=== PATIENT | male | born 1950 | race Two or more races ===

== ENCOUNTER 2022-08-19 07:09 | Outpatient (CLI) | payer OTHER ==
[~2022-08-19 07:09] MED LIST: CIPRO500 MG PO; COUMADIN7.5 MG; ENALAPRIL MALEA10 MG; INTESTINEX1 CA1 PO; TAMS0.4C PO
== END 2022-08-19 07:11 | disposition home or self-care (01) ==
LOC: RX STUDY 07:09
PROVIDERS: ATTEND Internal Medicine Gastroenterology
DX: K30 Functional dyspepsia (principal); K29.00 Acute gastritis without bleeding